=== PATIENT | male | born 1950 | race Caucasian/White ===

== ENCOUNTER 2022-04-11 08:24 | Outpatient (CLI) | payer MEDICARE, SELFPAY ==
[2022-04-11 14:22] LABS: Cholesterol* 126 mg/dL (90-199); Creatine Kinase* 79 U/L (54-186)
[2022-04-11 14:23] LABS: HDL Cholesterol* 40 mg/dL (>=40); LDL Cholesterol Calculated 74 mg/dL (<100); Triglycerides* 61 mg/dL (40-149)
[2022-04-11 14:27] LABS: C Reactive Protein* < 0.5 mg/dL (0.5-1.0)
[2022-04-11 15:04] LABS: Erythrocyte SedimentationRate* 6 mm/hr (2-15)
== END 2022-04-11 08:25 | disposition home or self-care (01) ==
PROVIDERS: PCP Family Medicine; Visit Provider Family Medicine
DX: E13.9 Other specified diabetes mellitus without complications (principal); E78.5 Hyperlipidemia, unspecified; I10 Essential (primary) hypertension; M79.10 Myalgia, unspecified site; M54.9 Dorsalgia, unspecified
CPT/HCPCS: 80061; 82550; 85651; 86140

== ENCOUNTER 2022-10-06 09:05 | Outpatient (CLI) | payer MEDICARE, SELFPAY | END 2022-10-06 09:06 | disposition home or self-care (01) | PROVIDERS: PCP Family Medicine; Visit Provider Family Medicine | DX: I10 Essential (primary) hypertension (principal); E13.9 Other specified diabetes mellitus without complications; E78.5 Hyperlipidemia, unspecified; E66.9 Obesity, unspecified | CPT/HCPCS: 80048 ==

== ENCOUNTER 2022-12-01 08:47 | Outpatient (CLI) | payer MEDICARE, SELFPAY | END 2022-12-01 08:48 | disposition home or self-care (01) | LOC: LONREF 08:50 | PROVIDERS: PCP Family Medicine; Visit Provider Family Medicine | DX: I10 Essential (primary) hypertension (principal); E78.5 Hyperlipidemia, unspecified; E13.9 Other specified diabetes mellitus without complications | CPT/HCPCS: 80048 ==

== ENCOUNTER 2023-04-27 09:17 | Outpatient (CLI) | payer MEDICARE, SELFPAY | END 2023-04-27 09:18 | disposition home or self-care (01) | LOC: LKVREF 09:18 | PROVIDERS: PCP Family Medicine; Visit Provider Family Medicine | DX: E78.5 Hyperlipidemia, unspecified (principal) | CPT/HCPCS: 80061 ==

== ENCOUNTER 2023-09-04 10:18 | Outpatient (CLI) | payer MEDICARE, SELFPAY | END 2023-09-04 10:19 | disposition home or self-care (01) | LOC: LKVREF 10:19 | PROVIDERS: PCP Family Medicine; Visit Provider Family Medicine | DX: Z01.818 Encounter for other preprocedural examination (principal); T85.848A Pain due to other internal prosthetic devices, implants and grafts, initial encounter | CPT/HCPCS: 80048 ==

== ENCOUNTER 2023-12-28 10:24 | Outpatient (CLI) | payer MEDICARE, SELFPAY ==
--- OUTSIDE RECORDS SUMMARY | 2023-12-28 10:27 | XMS_ITS | Referral Summary ---
Author Organization [place] Address [facility] [place] [address] Care Team Providers Care Pharmaceutical Development Technician Name Role Phone Ortega Kessler MD Primary Care Provider [phone] Allergies No known active allergies Medications Medication Sig Dispensed Refills Start Date End Date Status naproxen sodium 220 MG capsule Take 440 mg by mouth every morning Active insulin glargine (LANTUS VIAL) 100 UNIT/ML vial Inject 15 Units Subcutaneous at bedtime Active Dulaglutide (TRULICITY) 3 MG/0.5ML SOPN Inject 3 mg Subcutaneous every 7 days Active metFORMIN (GLUCOPHAGE) 1000 MG tablet Take 1,000 mg by mouth 2 times daily (with meals) Active simvastatin (ZOCOR) 40 MG tablet Take 40 mg by mouth at bedtime Active pioglitazone (ACTOS) 15 MG tablet Take 15 mg by mouth daily Active lisinopril (ZESTRIL) 40 MG tablet Take 40 mg by mouth daily Active hydrochlorothiazid e (HYDRODIURIL) 12.5 MG tablet Take 12.5 mg by mouth daily Active aspirin 81 MG EC tablet Take 81 mg by mouth three times a week Active Acyz-Beeei-PGB-Tc wellia-Vit D (GLUCOS CHONDROIT, BOSWELLIA,) TABS Take 1 tablet by mouth daily Active Multiple Vitamins-Minerals (MULTIVITAMIN ADULTS 50+ PO) Take 1 tablet by mouth daily Active calcium citrate-vitamin D (CITRACAL) 200-6.25 MG-MCG TABS per tablet Take 1 tablet by mouth daily Active ibuprofen (ADVIL/MOTRIN) 400 MG tablet Take 400 mg by mouth at bedtime Active docusate sodium (COLACE) 100 MG capsule Take 100 mg by mouth 2 times daily Active acetaminophen (TYLENOL) 500 MG tabletIndications: S/P total knee arthroplasty, left Take 2 tablets (1,000 mg) by mouth every 6 hours as needed for other (mild pain) 60 tablet 06/02/2023 Active aspirin 81 MG EC tabletIndications: S/P total knee arthroplasty, left Take 1 tablet (81 mg) by mouth 2 times daily 60 tablet 06/02/2023 Active senna-docusate (SENOKOT-S/PERICOL PAUL) 8.6-50 MG tabletIndications: S/P total knee arthroplasty, left Take 1-2 tablets by mouth 2 times daily Take while on oral narcotics to prevent or treat constipation. 30 tablet 06/02/2023 Active celecoxib (CELEBREX) 200 MG capsuleIndications :S/P total knee arthroplasty, left Take 1 capsule (200 mg) by mouth daily for 14 days Do not take within 6 hours of ibuprofen (MOTRIN, ADVIL) or ketorolac (TORADOL) if prescribed. 14 capsule 06/02/2023 Active oxyCODONE (ROXICODONE) 5 MG tabletIndications: S/P total knee arthroplasty, left Take 1-2 tablets (5-10 mg) by mouth every 4 hours as needed for moderate to severe pain 30 tablet 06/02/2023 Active hydrOXYzine HCl (ATARAX) 10 MG tabletIndications: S/P total knee arthroplasty, left Take 1 tablet (10 mg) by mouth every 6 hours as needed for itching or anxiety (with pain, moderate pain) 30 tablet 06/02/2023 Active Active Problems Problem Noted Date Diagnosed Date S/P total knee arthroplasty, left 06/02/2023 Social History Tobacco Use Types Packs/Day Years Used Date Smoking Tobacco: Never Passive Smoke Exposure: Never Smokeless Tobacco: Never Tobacco Cessation:Counseling Given: Not Answered Alcohol Use Standard Drinks/Week Comments Yes 0 (1 standard drink = 0.6 oz pur e alcohol) rarely Adolescent Education Answer Date Record ed Getting School Help Needed Not on file 05/06 Sex and Gender Information Value Date Recorded Sex Assigned at Not on file Gender Identity Not on file Sexual Orientation Not on file Last Filed Vital Signs Vital Sign Reading Time Taken Comments Blood Pressure 133/49 06/03/2023 7:14 AM FARM PLANNER Pulse 77 06/03/2023 7:14 AM FARM PLANNER Temperature 36.4 ??C (97.5 ??F) 06/03/2023 7:14 AM CS T Respiratory Rate 16 06/03/2023 7:14 AM FARM PLANNER Oxygen Saturation 94% 06/03/2023 7:14 AM FARM PLANNER Inhaled Oxygen Concentration - - Weight 77.2 kg (170 lb 4.8 oz) 06/02/2023 10:12 AM FARM PLANNER Height 170.2 cm (5' 7.01) 06/02/2023 10:[address] Body Mass Index 26.67 06/02/2023 10:12 AM FARM PLANNER Plan of Treatment Not on file Goals Goal Patient Goal Type Associated Problems Recent Progress Patient-Stated? Author Total Joint Replacement Hip Pathway Care Plan Total Joint Replacement Hip Pathway No Heather Beach RN Medical Devices Implanted Type Area Employee Benefits Administrator Device Identifier Shelf Expiration Date Model / Serial / Lot Bone Cement Strk Simplex P Speedset 6192-1-001 - [id number] Implanted:Qty: 2 on 06/02/2023 by Adam Hilliard MD at [facility] Cement, Bone Left: Knee [employer] 09/11/2023 6192-1-001 / / [id number] Implant Fem Id Imprt 6 Collin Kn Crcte Rtn Strl Lf - [id number] Implanted:Qty: 1 on 06/02/2023 by Adam Hilliard MD at [facility] Total Joint Component /Insert Left: Knee CONFORMIS 04/12/2028 TCR-101-F0 6N / / [id number] Identity Imprint Cr Tibia Size 6 Narrow [id number] - [id number] Implanted:Qty: 1 on 06/02/2023 by Adam Hilliard MD at [facility] Total Joint Component /Insert Left: Knee CONFORMIS 05/13/2028 TCR-301-T0 6N / / [id number] System Tkr Id Imprt Kn Crcte Rtn Jig Strl Lf - [id number] Implanted:Qty: 1 on 06/02/2023 by Adam Hilliard MD at [facility] Total Joint Component /Insert Left: Knee CONFORMIS 05/13/2024 TCR-000-D0 [id number] / Cmpnt Ptlr Ovl 38x9mm Cmnt Itotal Ipoly Xe Kn Strl Lf - [id number] Implanted:Qty: 1 on 06/02/2023 by Adam Hilliard MD at [facility] Total Joint Component /Insert Left: Knee CONFORMIS 02/10/2025 [id number] / / [id number] Identity Imprint Cs Ibial Insert, Size 6n, 7mm, Left Implanted:Qty: 1 on 06/02/2023 by Adam Hilliard MD at [facility] Total Joint Component /Insert Left: Knee CONFORMIS 11/11/2027 [id number] / / [id number] Procedures Procedure Name Priority Date/Time Associated Diagnosis Comments GLUCOSE BY METER Routine 06/03/2023 1:57 AM FARM PLANNER LIPID PANEL (EXTERNAL RESULT) Routine 04/27/2023 9:43 AM FARM PLANNER from Last 3 Months or Most Recently Relevant to Health Maintenance Results * (ABNORMAL) Glucose by meter (06/03/2023 1:57 AM FARM PLANNER) GLUCOSE BY METER POCT 160(H) 70 - 99 mg/dL 06/03/2023 6:14 AM FARM PLANNER LABORATORY POC Blood, Capillary BLOOD SPECIMEN / Unknown 06/03/2023 1:57 AM FARM PLANNER 06/03/2023 6:14 AM FARM PLANNER Adam [facility] - [facility] POCT LABORATORY POC [facility] Acute Care Lab [address] [facility] Lab (1st floor, no room number) [place] [address], [facility] [phone] * (ABNORMAL) Lipid Panel (External Result) (04/27/2023 9:43 AM FARM PLANNER) Cholesterol (External) 131 90 - 199 mg/dL [facility] Triglycerides (External) 58 40 - 149 mg/dL [facility] HDL Cholesterol (External) 39(L) >=40 mg/dL [facility] LDL Cholesterol Calculated (External) 80 <100 mg/dL [facility] Blood 04/27/2023 9:43 AM [facility] Narrative [facility] - 04/27/2023 9:43 AM [facility] Lab Result Provider Outside LAB - HIM EXTERNAL R ESULT [facility] [address] [place] [id number] [phone] from Last 3 Months or Most Recently Relevant to Health Maintenance Additional Health Concerns Active Problems Noted Date Diagnosed Date Total Joint Replacement Hip Pathway 05/12/2023 Advance Directives For more information, please contact: [phone] Documents on File Type Date Recorded 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 Advance Directives and Living Will 06/12/2023 Health Care Directiv e 01-22-2016 * Full Code (Latest Code Status on File) Date Activated Date Inactivated Comments 06/02/2023 4:43 PM 06/03/2023 1:13 PM All basic an d advanced life-sustaining interventions are performed as appropriate Question Answer Comments Code status determined by: Discussion with patie nt/ legal decision maker Healthcare Agents on File Name Relationship Healthcare Agent Relationship Communication Kaycee Rito Spouse Health Care Agent Celso Veras Son First Alternate Health Care Agent Kerwin Veras Son Second Alternat e Health Care Agent Care Teams Pharmaceutical Development Technician Relationship Specialty Start Date End Date Ortega Kessler MD PCP - General Family Medicine 06/02/23
--- OUTSIDE RECORDS SUMMARY | 2023-12-28 10:27 | XMS_ITS | Clinical Summary ---
Author Organization [place] Address [facility] [place] [address] Care Team Providers Care Rn Travel Name Role Phone Ortega Kessler MD Primary Care Provider [phone] Allergies No known active allergies Medications Medication [...] by mouth three times a week Active Vbil-Rxvvi-YVI-Tc wellia-Vit D (GLUCOS CHONDROIT, BOSWELLIA,) TABS Take [...] Comments Blood Pressure 133/49 06/03/2023 7:14 AM PUBLIC WORKS MANAGER Pulse 77 06/03/2023 7:14 AM PUBLIC WORKS MANAGER Temperature 36.4 ??C (97.5 ??F) 06/03/2023 7:14 AM CS T Respiratory Rate 16 06/03/2023 7:14 AM PUBLIC WORKS MANAGER Oxygen Saturation 94% 06/03/2023 7:14 AM PUBLIC WORKS MANAGER Inhaled Oxygen Concentration - - Weight 77.2 kg (170 lb 4.8 oz) 06/02/2023 10:12 AM PUBLIC WORKS MANAGER Height 170.2 cm (5' 7.01) 06/02/2023 10:[address] Body Mass Index 26.67 06/02/2023 10:12 AM PUBLIC WORKS MANAGER Plan of Treatment Health Maintenance Due Date Last Done Comments ANNUAL REVIEW OF HM ORDERS 1950 CT COLONOGRAPHY 1950 FIT 1950 FLEX SIG 1950 sDNA (Cologuard) 1950 COLONOSCOPY 1960 COLORECTAL CANCER SCREENING 1960 HEPATITIS C SCREENING 1968 FALL RISK ASSESSMENT 2015 MEDICARE ANNUAL WELLNESS VISIT 2015 PHQ-2 (once per calendar year) 2023 COVID-19 Vaccine ( season) 2023 01/20/2023, 01/24/2022, 08/26/2021, Additional history exists INFLUENZA VACCINE (#1) 2023 , 01/21/2022, 01/04/2021, Additional history exists LIPID 04/27/2024 04/27/2023 RSV VACCINE (1 - 1-dose 75+ series) 2025 GLUCOSE 06/03/2026 06/03/2023, 0204/2023, 06/03/2023, Additional history exists ADVANCE CARE PLANNING 06/11/2028 06/12/2023, 024 DTAP/TDAP/TD IMMUNIZATION (3 - Td or Tdap) 10/03/2030 10/03/2020, 03/18/2011, 05/27/2002 ZOSTER IMMUNIZATION Completed 12/29/2017, 10/05/2017, 03/18/2011 Pneumococcal Vaccine: 65+ Years Completed 09/21/2018, 07/10/2015, 08/19/2000 HPV IMMUNIZATION Aged Out No longer e ligible based on patient's age to complete this topic MENINGITIS IMMUNIZATION Aged Out No l onger eligible based on patient's age to complete this topic RSV MONOCLONAL ANTIBODY Aged Out No l onger eligible based on patient's age to complete this topic Goals Goal Patient Goal Type Associated Problems Recent Progress Patient-Stated? Author Total Joint Replacement Hip Pathway Care Plan Total Joint Replacement Hip Pathway No Heather Beach RN Medical Devices Implanted Type Area Heavy Machinery Operator Device Identifier Shelf Expiration Date Model / Serial / Lot Bone Cement Strk Simplex P Speedset 6192-1-001 - [id number] Implanted:Qty: 2 on 06/02/2023 by Adam Hilliard MD at [facility] Cement, Bone Left: Knee [employer] 09/11/2023 6192-1-001 / / [id number] Implant Fem Id Imprt 6 Collin Kn Crcte Rtn Strl Lf - [id number] Implanted:Qty: 1 on 06/02/2023 by Adam Hilliard MD at [facility] Total Joint Component /Insert Left: Knee CONFORMIS 04/12/2028 TCR-101-F0 6N / / [id number] Identity Imprint Cr Tibia Size 6 Narrow [id number] - [id number] Implanted:Qty: 1 on 06/02/2023 by Adam Hilliard MD at [facility] Total Joint Component /Insert Left: Knee CONFORMIS 05/13/2028 TCR-301-T0 6N / / [id number] System Tkr Id Imprt Kn Crcte Rtn Jig Strl Lf - [id number] Implanted:Qty: 1 on 06/02/2023 by Adam Hilliard MD at [facility] Total Joint Component /Insert Left: Knee CONFORMIS 05/13/2024 TCR-000-D0 [id number] / Cmpnt Ptlr Ovl 38x9mm Cmnt Itotal Ipoly Xe Kn Strl Lf - [id number] Implanted:Qty: 1 on 06/02/2023 by Adam Hilliard MD at [facility] Total Joint Component /Insert Left: Knee CONFORMIS 02/10/2025 [id number] / / [id number] Identity Imprint Cs Ibial Insert, Size 6n, 7mm, Left Implanted:Qty: 1 on 06/02/2023 by Adam Hilliard MD at [facility] Total Joint Component /Insert Left: Knee CONFORMIS 11/11/2027 [id number] / / [id number] Procedures Procedure Name Priority Date/Time Associated Diagnosis Comments GLUCOSE BY METER Routine 06/03/2023 1:57 AM PUBLIC WORKS MANAGER LIPID PANEL (EXTERNAL RESULT) Routine 04/27/2023 9:43 AM PUBLIC WORKS MANAGER from Last 3 Months or Most Recently Relevant to Health Maintenance Results * (ABNORMAL) Glucose by meter (06/03/2023 1:57 AM PUBLIC WORKS MANAGER) GLUCOSE BY METER POCT 160(H) 70 - 99 mg/dL 06/03/2023 6:14 AM PUBLIC WORKS MANAGER LABORATORY POC Blood, Capillary BLOOD SPECIMEN / Unknown 06/03/2023 1:57 AM PUBLIC WORKS MANAGER 06/03/2023 6:14 AM PUBLIC WORKS MANAGER Adam Hilliard MD [facility] POCT LABORATORY [facility] Acute Care Lab [address] [facility] Lab (1st floor, no room number) [place] [address], [facility] [phone] * (ABNORMAL) Lipid Panel (External Result) (04/27/2023 9:43 AM PUBLIC WORKS MANAGER) Cholesterol (External) 131 90 - 199 mg/dL [facility] Triglycerides (External) 58 40 - 149 mg/dL [facility] HDL Cholesterol (External) 39(L) >=40 mg/dL [facility] LDL Cholesterol Calculated (External) 80 <100 mg/dL [facility] Blood 04/27/2023 9:43 AM PUBLIC WORKS MANAGER Narrative [facility] - 04/27/2023 9:43 AM [facility] Lab Result Provider Outside LAB - HIM EXTERNAL R ESULT [facility] [address] [place] [address], [facility] [phone] from Last 3 Months or Most Recently Relevant to Health Maintenance Additional Health Concerns Active Problems Noted Date Diagnosed Date Total Joint Replacement Hip Pathway 05/12/2023 Advance Directives For more information, please contact: [phone] Documents on File Type Date 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 Advance Directives and Living Will 06/12/2023 [facility] Care Direct e 01-22-2016 * Full Code (Latest Code Status on File) Date Activated Date Inactivated Comments 06/02/2023 4:43 PM 06/03/2023 1:13 PM All basic an d advanced life-sustaining interventions are performed as appropriate Question Answer Comments Code status determined by: Discussion with patie nt/ legal decision maker Healthcare Agents on File Name Relationship Healthcare Agent Relationship Communication Kaycee Veras Spouse Health Care Agent Celso Veras Son First Alternate Health Care Agent Kerwin Veras Son Second Alternat e Health Care Agent Care Teams Rn Travel Relationship Specialty Start Date End Date Ortega Kessler MD PCP - General Family Medicine 06/02/23
--- OUTSIDE RECORDS SUMMARY | 2023-12-28 10:27 | XMS_ITS | Clinical Summary ---
Author Organization [facility] Address [place], [place] [address] Care Team Providers Care Torch Operator Name Role Phone Chris Kessler MD Primary Care Provider [phone] Allergies No known active allergies Medications Medication Sig Dispensed Refills Start Date End Date Status metFORMIN (GLUCOPHAGE) 1,000 mg tablet Take 1 tablet by mouth 2 times daily with meals. 0 02/13/2011 Active atorvastatin (LIPITOR) 40 mg tablet Take 1 tablet by mouth once daily. 0 02/13/2011 Active simvastatin (ZOCOR) 40 mg tablet Take 1 tablet by mouth at bedtime. 0 02/13/2011 Active Geriatric Multivitamins-Min Tab Take by mouth. 0 02/13/2011 Active calcium carbonate-vitamin D3, 600 mg-400 unit, (CALCIUM 600 + D) tablet Take 1 tablet by mouth 2 times daily with meals. 0 02/13/2011 Active exenatide (BYETTA) 10 mcg/0.04 mL injection Inject 10 mcg subcutaneous 2 times daily before meals. 0 02/13/2011 Active insulin glargine (LANTUS) 100 unit/mL injection Inject subcutaneous before bedtime. 10 mL 0 02/13/2011 Active aspirin 81 mg tablet Take 1 tablet by mouth once daily with a meal. 0 02/13/2011 Active Active Problems Problem Noted Date Diagnosed Date Bilateral incipient cataracts 03/31/2014 Pigment dispersion syndrome of both eyes 014 Diabetes mellitus type II 02/13/2011 Overview (06/28/2013): a system change updated this record. This will not affect patient care or billing. This comment can be deleted. HTN (hypertension) 02/13/2011 Hyperlipidemia 02/13/2011 Social History Tobacco Use Types Packs/Day Years Used Date Smoking Tobacco: Never Alcohol Use Standard Drinks/Week Comments Not Asked 0 (1 standard drink = 0.6 oz pur e alcohol) Sex and Gender Information Value Date Recorded Sex Assigned at Not on file Gender Identity Not on file Sexual Orientation Not on file Obstetrics History Last Filed Vital Signs Vital Sign Reading Time Taken Comments Blood Pressure 135/68 03/30/2014 5:41 PM INFORMATION SYSTEMS SPECIALIST Pulse - - Temperature - - Respiratory Rate - - Oxygen Saturation - - Inhaled Oxygen Concentration - - Weight - - Height - - Body Mass Index - - Plan of Treatment Health Maintenance Due Date Last Done Comments Tdap 1961 Depression screening for age 12+ 1962 BMI (ht and wt on same day) for age 18+ 1968 Hepatitis C screening for age 18-79 1968 Tetanus booster 1970 Colonoscopy through age 75 1995 Lipids for age 45-75 1995 Zoster (shingles) series for age 50+ (1 of 2) 03/26/20 00 Pneumococcal series for age 65+ (1 of 1 - PCV) 015 COVID-19 vaccine series ( - 2022- season) 4 Influenza for age 65+ 12/13/2023 Care Teams Torch Operator Relationship Specialty Start Date End Date Chris Kessler MD PCP - General 10/04/09
== END 2023-12-28 10:25 | disposition home or self-care (01) ==
LOC: LKVREF 10:25
PROVIDERS: PCP Family Medicine; Visit Provider Family Medicine
DX: Z01.818 Encounter for other preprocedural examination (principal); I10 Essential (primary) hypertension; E13.9 Other specified diabetes mellitus without complications; E78.2 Mixed hyperlipidemia
CPT/HCPCS: 80048

== ENCOUNTER 2024-01-07 06:22 | Day surgery (SDC) | payer MEDICARE, SELFPAY ==
[2024-01-07] VITALS (14 sets, daily range): BP systolic 115–169; BP diastolic 50–74; PULSE 54–90; RESP 18–20; TEMP 36.3–37; O2SAT 91–98; BMI 28.5
--- OUTSIDE RECORDS SUMMARY | 2024-01-07 06:24 | XMS_ITS | Continuity of Care Document ---
Author Organization [facility] Address [address] [address] [place] [address] Phone Care Team Providers Care Janitorial Tech Name Role Phone Patti More CRNA Unavailable Unavailable Allergies, Adverse Reactions, Alerts Substance Reaction Status Criticality No Known Allergies Active No Inform ation Medications Medication Instructions Dosage Effective Dates (start - stop) Status Comments Trulicity 3 mg/0.5 mL subcutaneous pen injector inject (3MG) by subcutaneous route every week 3 MG - Active metformin 1,000 mg tablet take 1 tablet by oral route 2 times every day with morning and evening meals 1000 MG - Active Aleve 220 mg tablet take 1 tablet by ORAL route every day as needed 220 MG - Active Lantus 100 unit/mL Sub-Q inject by subcutaneous route as per insulin protocol 0.00 - Active CALCIUM 600-VIT D3 (unknown strength) take 1 Tablet by Oral route every day Not Available - Active simvastatin 40 mg tablet take 1 tablet (40MG) by oral route every day in the evening 40 MG - Active hydrochlorothiazide 12.5 mg tablet take 1 tablet (12.5MG) by oral route every day 12.5 MG - Active lisinopril 40 mg tablet take 1 tablet (40MG) by oral route every day 40 MG - Active Multiple Vitamins tablet take 1 tablet b y oral route every day with food - Active pioglitazone 15 mg tablet take 1 Tablet (15MG) by oral route every day 15 MG - Active Aspirin Low Dose 81 mg Tab, Delayed Release Take 1 tablet by mouth daily - Active Byetta 10 mcg/0.04 mL per dose Sub-Q Pen Injector inject by subcutanous route twice daily - No Longer Active Glucosamine Chondroitin Maximum Strength 500 mg-400 mg capsule take 3 Tablet by Oral route every day 3 Tablet No Longer Active phentermine 37.5 mg tablet take 1 tablet (37.5MG) by oral route every day before breakfast 37.5 MG - No Longer Active Glucophage 1,000 mg Tab Take one tablet by mouth two times per day - No Longer Active glipizide 10 mg Tab Take one tablet by mouth daily - No Longer Active Procedures Procedure Date Colorectal Ca Scrn Not Hi Risk Colonoscopy Flex; Dx (sep Pro) Colonoscopy Flex; Dx (sep Advance Directives Directive Yes / No Effective Date File Name No Information Encounters Encounter Description Practice Location Reason(s) For Visit Diagnoses Date Provider Providers Copied on Encounter [facility], [address] [address], [place], [id number], [place] tel:[phone] [facility] No Information 3 Argenis Armstrong. [address], [place], [place], [address] , [place]. tel:[phone] Referring Provider: Ruy Morrow, [address], [place], [address] . tel:[phone] [facility], [address] [address], [place], [id number], [place] tel:[phone] [facility] GI Symptoms or Concerns (chief complaint) Screening ColonoscopyEncoun ter for screening for malignant neoplasm of colon 3 Vincent Redmond. [address], [place], [place], [id number] , [place]. tel:[phone] Referring Provider: Referral Self, USE FOR SELF REFERRALS. [facility], [address] [address], [place], [place], [address], [place] tel:[phone] [facility] No Information 3 Rory Anderson. [address], [facility] [address], [place], [place], [id number] , [place]. tel: [phone] [facility], [address] [address], [place], [place], [id number], [place] tel:[phone] [facility] Anemia NosHemorrhoids NosFamily Hx GI Tract CancerAnemia NosFamily Hx GI Tract CancerHemorrhoids Nos 3 Shannon Alas. [address], [facility] [address], [place], [place], [address] , [place]. tel: [phone] Referring Provider: Ortega Samuel, [address] [place] [address], [address]. tel:[phone] [facility], [address] [address], [place], [place], [id number], [place] tel:[phone] [facility] 6 Finesse Lozano. [address] [place] [address], [facility] [address], [facility] [place], [address] , [place]. tel: [phone] Referring Provider: Ortega Samuel, [address] [place] [address], [address]. tel:[phone] Family History Family Member Type Diagnosis Age At Onset No Information Immunizations Vaccine Date Status Comments SARS-COV-2 (COVID-19) vaccin e, mRNA, spike protein, LNP, bivalent booster, preservative free, 50 mcg/0.5 mL or 25 mcg/0.25 mL dose administered Note: [facility] bi-direct ional interface ; Source: Other Registry influenza, seasonal vaccine, quadrivalent, adjuvanted, 0.5mL dose, preservative free administered Note: [facility] bi-di rectional interface ; Source: Other Registry SARS-COV-2 (COVID-19) vaccin e, mRNA, spike protein, LNP, preservative free, 100 mcg/0.5mL dose or 50 mcg/0.25mL dose administered Note: [facility] bi -directional interface ; Source: Other Registry SARS-COV-2 (COVID-19) vaccin e, mRNA, spike protein, LNP, preservative free, 100 mcg/0.5mL dose or 50 mcg/0.25mL dose administered Note: [facility] bi -directional interface ; Source: Other Registry influenza, high-dose seasona l, quadrivalent, 0.7mL dose, preservative free administered Note: [facility] bi-direct ional interface ; Source: Other Registry tetanus toxoid, reduced diphtheria toxoid, and acellular pertussis vaccine, adsorbed administered Note: [facility] b i-directional interface ; Source: Other Registry SARS-COV-2 (COVID-19) vaccin e, mRNA, spike protein, LNP, preservative free, 100 mcg/0.5mL dose or 50 mcg/0.25mL dose administered Note: [facility] bi -directional interface ; Source: Other Registry SARS-COV-2 (COVID-19) vaccin e, mRNA, spike protein, LNP, preservative free, 100 mcg/0.5mL dose or 50 mcg/0.25mL dose administered Note: [facility] bi -directional interface ; Source: Other Registry influenza, high-dose seasona l, quadrivalent, 0.7mL dose, preservative free administered Note: [facility] bi-direct ional interface ; Source: Other Registry Afluria Qd administered Note: [facility] bi-directional interface ; Source: Other Registry Pneumovax 23 administered Note: [facility] bi-d irectional interface ; Source: Other Registry influenza, high dose seasona l, preservative-free administered Note: [facility] bi-direct ional interface ; Source: Other Registry zoster vaccine recombinant administered N ote: [facility] bi-directional interface ; Source: Other Registry zoster vaccine recombinant administered N ote: [facility] bi-directional interface ; Source: Other Registry influenza, high dose seasona l, preservative-free administered Note: [facility] bi-direct ional interface ; Source: Other Registry influenza, high dose seasona l, preservative-free administered Note: [facility] bi-direct ional interface ; Source: Other Registry Prevnar 13 administered Note: [facility] bi-d irectional interface ; Source: Other Registry Afluria Qd administered Note: [facility] bi-directional interface ; Source: Other Registry Influenza, seasonal, injectable administe red Note: [facility] bi- directional interface ; Source: Other Registry tetanus toxoid, reduced diphtheria toxoid, and acellular pertussis vaccine, adsorbed administered Note: [facility] b i-directional interface ; Source: Other Registry zoster vaccine, live administered Note: [facility] bi-directional interface ; Source: Other Registry Influenza, seasonal, injectable administe red Note: [facility] bi- directional interface ; Source: Other Registry Influenza, seasonal, injecta ble, preservative free administered Note: [facility] bi-direct ional interface ; Source: Other Registry influenza virus vaccine, unspecified formulation administered Note: [facility] bi-di rectional interface ; Source: Other Registry Influenza, seasonal, injectable administe red Note: [facility] bi- directional interface ; Source: Other Registry Pneumovax 23 administered Note: [facility] bi-d irectional interface ; Source: Other Registry Payers Payer name Insurance type Covered democrat ID Authoriza tion(s) [employer] Medicare Advantage [id number] Social History Type Description Quantity Date Captured Comments Sex Male Smoking Status No Information Chief Complaint And Reason For Visit No Information Reason For Referral Reason For Referral No Information History Of Present Illness Encounter Date Complaint History Of Prese nt Illness GI Symptoms or Concerns Functional Status Date Functional Assessmen t No Information Instructions Date Instruction Additional Infor mation Colon Cancer Prevention Related to Screening Colonoscopy Assessments Type Assessment Date No Information Patient Care Teams Name Effective Dates (start - stop) Status Members No Information
--- OUTSIDE RECORDS SUMMARY | 2024-01-07 06:24 | XMS_ITS | Clinical Summary ---
Author Organization [facility] Address [place], [place] [address] Care Team Providers Care Piccoloist Name Role Phone Chris Kessler MD Primary Care Provider [phone] Allergies No known active allergies Medications Medication [...] Comments Blood Pressure 135/68 03/30/2014 5:41 PM [facility] Pulse - - Temperature - - Respiratory [...] Influenza for age 65+ 12/13/2023 Care Teams Piccoloist Relationship Specialty Start Date End Date Chris Kessler MD PCP - General 10/04/09
--- OUTSIDE RECORDS SUMMARY | 2024-01-07 06:24 | XMS_ITS | Referral Summary ---
Author Organization [facility] Address [facility] [place] [address] Care Team Providers Care Ski Maker Name Role Phone Otrega Kessler MD Primary Care Provider [phone] Allergies No known active allergies Medications Medication [...] by mouth three times a week Active Kwba-Pekke-QHE-Tc wellia-Vit D (GLUCOS CHONDROIT, BOSWELLIA,) TABS Take [...] Comments Blood Pressure 133/49 06/03/2023 7:14 AM CHRONOMETER TESTER Pulse 77 06/03/2023 7:14 AM CHRONOMETER TESTER Temperature 36.4 ??C (97.5 ??F) 06/03/2023 7:14 AM CS T Respiratory Rate 16 06/03/2023 7:14 AM CHRONOMETER TESTER Oxygen Saturation 94% 06/03/2023 7:14 AM CHRONOMETER TESTER Inhaled Oxygen Concentration - - Weight 77.2 kg (170 lb 4.8 oz) 06/02/2023 10:12 AM CHRONOMETER TESTER Height 170.2 cm (5' 7.01) 06/02/2023 10:[address] Body Mass Index 26.67 06/02/2023 10:12 AM CHRONOMETER TESTER Plan of Treatment Not on file Goals Goal Patient Goal Type Associated Problems Recent Progress Patient-Stated? Author Total Joint Replacement Hip Pathway Care Plan Total Joint Replacement Hip Pathway No Heather Beach RN Medical Devices Implanted Type Area Food Production Machine Operator Device Identifier Shelf Expiration Date Model / Serial / Lot Bone Cement Strk Simplex P Speedset 6192-1-001 - [id number] Implanted:Qty: 2 on 06/02/2023 by Adam Hilliard MD at [facility] Cement, Bone Left: Knee [employer] 09/11/2023 6192-1-001 / / [id number] Implant Fem Id Imprt 6 Collin Kn Crcte Rtn Strl Lf - [id number] Implanted:Qty: 1 on 06/02/2023 by Adam Hilliard MD at [facility] Total Joint Component /Insert Left: Knee CONFORMIS 04/12/2028 TCR-101-F0 6N / / [id number] Identity Imprint Cr Tibia Size 6 Narrow [id number] - [id number] Implanted:Qty: 1 on 06/02/2023 by Adam Hilliard MD at [facility] Total Joint Component /Insert Left: Knee CONFORMIS 05/13/2028 TCR-301-T0 6N / / [id number] System Tkr Id Imprt Kn Crcte Rtn Jig Strl Lf - [id number] Implanted:Qty: 1 on 06/02/2023 by Adam Hilliard MD at [facility] Total Joint Component /Insert Left: Knee CONFORMIS 05/13/2024 TCR-000-D0 [id number] / Cmpnt Ptlr Ovl 38x9mm Cmnt Itotal Ipoly Xe Kn Strl Lf - [id number] Implanted:Qty: 1 on 06/02/2023 by Adam Hilliard MD at [facility] Total Joint Component /Insert Left: Knee CONFORMIS 02/10/2025 [id number] / / [id number] Identity Imprint Cs Ibial Insert, Size 6n, 7mm, Left Implanted:Qty: 1 on 06/02/2023 by Adam Hilliard MD at [facility] Total Joint Component /Insert Left: Knee CONFORMIS 11/11/2027 [id number] / / [id number] Procedures Procedure Name Priority Date/Time Associated Diagnosis Comments GLUCOSE BY METER Routine 06/03/2023 1:57 AM CHRONOMETER TESTER LIPID PANEL (EXTERNAL RESULT) Routine 04/27/2023 9:43 AM CHRONOMETER TESTER from Last 3 Months or Most Recently Relevant to Health Maintenance Results * (ABNORMAL) Glucose by meter (06/03/2023 1:57 AM CHRONOMETER TESTER) GLUCOSE BY METER POCT 160(H) 70 - 99 mg/dL 06/03/2023 6:14 AM CHRONOMETER TESTER LABORATORY POC Blood, Capillary BLOOD SPECIMEN / Unknown 06/03/2023 1:57 AM CHRONOMETER TESTER 06/03/2023 6:14 AM CHRONOMETER TESTER Adam [facility] POCT LABORATORY POC [facility] Lab [address] [facility] (1st floor, no room number) [place] [address], [facility] [phone] * (ABNORMAL) Lipid Panel (External Result) (04/27/2023 9:43 AM CHRONOMETER TESTER) Cholesterol (External) 131 90 - 199 mg/dL [facility] Triglycerides (External) 58 40 - 149 mg/dL [facility] HDL Cholesterol (External) 39(L) >=40 mg/dL [facility] LDL Cholesterol Calculated (External) 80 <100 mg/dL [facility] Blood 04/27/2023 9:43 AM [facility] Narrative [facility] - 04/27/2023 9:43 AM [facility] Lab Result Provider Outside LAB - HIM EXTERNAL R ESULT [facility] [address] [place] [id number] [phone] from Last 3 Months or Most Recently Relevant to Health Maintenance Additional Health Concerns Active Problems Noted Date Diagnosed Date Total Joint Replacement Hip Pathway 05/12/2023 Advance Directives For more information, please contact: [phone] Documents on File Type Date Recorded 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
--- OUTSIDE RECORDS SUMMARY | 2024-01-07 06:24 | XMS_ITS | Clinical Summary ---
Author Organization [facility] Address [facility] [place] [address] Care Team Providers Care Facility Maintenance Helper Name Role Phone Ortega Kessler MD Primary Care Provider [phone] Allergies No known active allergies Medications Medication [...] by mouth three times a week Active Mydo-Rjqpt-DRS-Tc wellia-Vit D (GLUCOS CHONDROIT, BOSWELLIA,) TABS Take [...] Comments Blood Pressure 133/49 06/03/2023 7:14 AM STATION USHER Pulse 77 06/03/2023 7:14 AM STATION USHER Temperature 36.4 ??C (97.5 ??F) 06/03/2023 7:14 AM CS T Respiratory Rate 16 06/03/2023 7:14 AM STATION USHER Oxygen Saturation 94% 06/03/2023 7:14 AM STATION USHER Inhaled Oxygen Concentration - - Weight 77.2 kg (170 lb 4.8 oz) 06/02/2023 10:12 AM STATION USHER Height 170.2 cm (5' 7.01) 06/02/2023 10:[address] Body Mass Index 26.67 06/02/2023 10:12 AM STATION USHER Plan of Treatment Health Maintenance Due Date [...] Beach RN Medical Devices Implanted Type Area Oil Well Services Dispatcher Device Identifier Shelf Expiration Date Model / Serial / Lot Bone Cement Strk Simplex P Speedset 6192-1-001 - [id number] Implanted:Qty: 2 on 06/02/2023 by Adam Hilliard MD at [facility] Cement, Bone Left: Knee [employer] 09/11/2023 6192-1-001 / / [id number] Implant Fem Id Imprt 6 Collin Kn Crcte Rtn Strl Lf - [id number] Implanted:Qty: 1 on 06/02/2023 by Adam Hilliard MD at [facility] Total Joint Component /Insert Left: Knee CONFORMIS 04/12/2028 TCR-101-F0 6N / / [id number] Identity Imprint Cr Tibia Size 6 Narrow [id number] - [id number] Implanted:Qty: 1 on 06/02/2023 by Adam Hilliard MD at [facility] Total Joint Component /Insert Left: Knee CONFORMIS 05/13/2028 TCR-301-T0 6N / / [id number] System Tkr Id Imprt Kn Crcte Rtn Jig Strl Lf - [id number] Implanted:Qty: 1 on 06/02/2023 by Adam Hilliard MD at [facility] Total Joint Component /Insert Left: Knee CONFORMIS 05/13/2024 TCR-000-D0 [id number] / Cmpnt Ptlr Ovl 38x9mm Cmnt Itotal Ipoly Xe Kn Strl Lf - [id number] Implanted:Qty: 1 on 06/02/2023 by Adam Hilliard MD at [facility] Total Joint Component /Insert Left: Knee CONFORMIS 02/10/2025 [id number] / / [id number] Identity Imprint Cs Ibial Insert, Size 6n, 7mm, Left Implanted:Qty: 1 on 06/02/2023 by Adam Hilliard MD at [facility] Total Joint Component /Insert Left: Knee CONFORMIS 11/11/2027 [id number] / / [id number] Procedures Procedure Name Priority Date/Time Associated Diagnosis Comments GLUCOSE BY METER Routine 06/03/2023 1:57 AM STATION USHER LIPID PANEL (EXTERNAL RESULT) Routine 04/27/2023 9:43 AM STATION USHER from Last 3 Months or Most Recently Relevant to Health Maintenance Results * (ABNORMAL) Glucose by meter (06/03/2023 1:57 AM STATION USHER) GLUCOSE BY METER POCT 160(H) 70 - 99 mg/dL 06/03/2023 6:14 AM STATION USHER LABORATORY POC Blood, Capillary BLOOD SPECIMEN / Unknown 06/03/2023 1:57 AM STATION USHER 06/03/2023 6:14 AM STATION USHER Adam Hilliard MD [facility] POCT LABORATORY [facility] Acute Care Lab [address] [facility] Lab (1st floor, no room number) [place] [address], [facility] [phone] * (ABNORMAL) Lipid Panel (External Result) (04/27/2023 9:43 AM STATION USHER) Cholesterol (External) 131 90 - 199 mg/dL [facility] Triglycerides (External) 58 40 - 149 mg/dL [facility] HDL Cholesterol (External) 39(L) >=40 mg/dL [facility] LDL Cholesterol Calculated (External) 80 <100 mg/dL [facility] Blood 04/27/2023 9:43 AM STATION USHER Narrative [facility] - 04/27/2023 9:43 AM [facility] Lab Result Provider Outside LAB - HIM EXTERNAL R ESULT [facility] [address] [place] [address], [facility] [phone] from Last 3 Months or Most Recently Relevant to Health Maintenance Additional Health Concerns Active Problems Noted Date Diagnosed Date 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
[2024-01-07] MEDS: SODIUM CHLORIDE 0.9 % (FLUSH) 10 ML SYRINGE IVF (07:20)
[2024-01-07] MEDS: LACTATED RINGERS 1000 ML 1,000 ML 100 ML IV ×2 (07:20→10:20)
[2024-01-07] MEDS: CEFAZOLIN 2 GM INJ IVP (07:44)
[2024-01-07] MEDS: BUPIVACAINE 0.25% 30 ML INJECTION (08:10)
--- NOTE | 2024-01-07 09:47 | PM.GSPRC ---
Operative Note Date of procedure: 01/07/24 Pre-op diagnosis: Right inguinal hernia Post-op diagnosis: Same, indirect Type of Procedure: Laparoscopic right inguinal hernia repair Indications: Patient is a 73-year-old male who presented to clinic with a symptomatic right inguinal hernia. Different treatment options were reviewed with the patient deciding to pursue operative intervention. Risks and benefits of operative intervention were discussed at length with the patient. Risks included but was not limited to: Bleeding, infection, risk of damage to surrounding structures, possible need for additional procedures, possible need to convert to an open operation and postoperative complications such as pneumonia, pulmonary emboli or MD. All questions and concerns were addressed with the patient agreeing to proceed. Procedure Description: After discussing the risks and benefits of the procedure, the patient signed informed consent.? The operative site was marked and the patient was brought to the operating room and placed on the operating table in supine position.? Care was taken to pad the patient's pressure points.?? The patient was then intubated by anesthesia.?? The operative site was then prepped and draped in the usual sterile fashion.? A time-out was then performed. A curvilinear incision was made below the umbilicus. Dissection was carried down to subcutaneous tissue until the anterior rectus fascia was encountered. This was incised off the midline. The rectus muscles were then retracted exposing the posterior fascia. A space maker port with a dissecting balloon was then introduced. The preperitoneal space was inflated under direct vision. The balloon was then removed and the preperitoneal space insufflated. A 10 mm 30 degree scope was then advanced and the area was surveyed for bleeding. Dissection began on the right side. Justin's ligament and the pubic bone was exposed medially. Following this dissection was carried out laterally. A large indirect defect was noted. The sac was dissected free from the cord structures using a combination of sharp and blunt dissection. Once the sac was completely reduced, the cord structures were dissected circumfrentially and a piece of Parietex mesh for the appropriate side was placed into the abdomen. This was positioned around the cord structures. A Tacker was used to attach the mesh medially at Justin's ligament. Once this was completed the sac was placed on top of the mesh and the preperitoneal space desufflated under direct vision. The ports were removed. The fascia from the infraumbilical port was closed with 0 Vicryl. The skin incisions were closed with absorbable subcuticular suture. Sterile dressings were then applied. The scrotum was examined to ensure that both testicles were down. Instrument sponge and needle counts were correct at the end of the case. Findings: Large indirect hernia, right side Anesthesia: GETA Surgeon: Nya Ty MD Estimated blood loss (mL): 5 Condition: stable Disposition: PACU
[2024-01-07] MEDS: ONDANSETRON 2 MG/ML inj 4 MG IVP (10:05)
--- NOTE | 2024-01-07 10:05 | P.ANES_ITS ---
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
[2024-01-07] MEDS: fentaNYL 100 MCG/2 ML inj 50 MCG IVP ×2 (10:20→10:30)
[2024-01-07] MEDS: HYDROCODONE-ACETAMIN 5-325 MG 1 TAB PO (10:51)
== END 2024-01-07 12:08 | disposition home or self-care (01) ==
PROVIDERS: PCP Family Medicine; Visit Provider Surgery
PROC: (CPT 49650; principal; 2024-01-07 07:30)
DX: K40.90 Unilateral inguinal hernia, without obstruction or gangrene, not specified as recurrent (principal); E13.9 Other specified diabetes mellitus without complications
CPT/HCPCS: 49650; 00830; 82962; 99100; A9270; C1781; J0665; J0690; J1100; J2371; J2405; J2704; J2710; J3010; J7120

== ENCOUNTER 2024-04-01 10:41 | Outpatient (CLI) | payer MEDICARE, SELFPAY | END 2024-04-01 10:42 | disposition home or self-care (01) | LOC: LKVREF 10:42 | PROVIDERS: PCP Family Medicine; Visit Provider Family Medicine | DX: E78.2 Mixed hyperlipidemia (principal) | CPT/HCPCS: 80061 ==

== ENCOUNTER 2024-06-03 09:06 | Outpatient (CLI) | payer MEDICARE, SELFPAY | END 2024-06-03 09:07 | disposition home or self-care (01) | LOC: LKVREF 09:08 | PROVIDERS: PCP Family Medicine; Visit Provider Family Medicine | DX: I10 Essential (primary) hypertension (principal); Z01.818 Encounter for other preprocedural examination | CPT/HCPCS: 80048 ==

== ENCOUNTER 2024-09-15 15:18 | Outpatient (CLI) | payer MEDICARE, SELFPAY ==
[2024-09-15 15:57] LABS: Creatinine* 0.9 mg/dL (0.5-1.5); Estimated Glomerular Filt Rate 90 ml/min
--- NOTE | 2024-09-15 16:00 | CRLHL7_ITS ---
For Patients: As a result of the Century Cures Act, medical imaging exams and procedure reports are released immediately into your electronic medical record. You may view this report before your referring provider. If you have questions, please contact your health care provider. Indication: Unilateral inguinal hernia, without obstruction Technique: Routine noncontrast CT abdomen and pelvis. Please note that all CT scans at this facility use dose modulation, iterative reconstruction, and/or weight-based dosing when appropriate to reduce radiation dose to as low as reasonably achievable. Comparison: None Findings: Scarring is present within the lung bases, left greater than right. No pleural effusion. No hiatal hernia. Noncontrast enhanced liver normal. Normal gallbladder. Spleen within normal limits. Normal adrenal glands. Pancreas unremarkable. No hydronephrosis. Peripherally calcified cyst arises from the upper pole of the right kidney measuring 5.8 cm. Atherosclerotic changes. No aneurysm. Mildly distended loops of small bowel in the midline are present containing air and fluid measuring up to 4.1 cm. Mild prominence of the associated bowel wall noted. Bilateral inguinal hernias are present. On the right, the hernia measures at least 7.2 cm and contains loops of bowel. On the left, the hernia measures approximately 6.8 cm and contains loops of bowel. No mechanical bowel obstruction. The bladder is normal. The prostate is prominent with lobular mass effect upon the inferior bladder. Severe multilevel degenerative disc disease with leftward curvature. No vertebral body compression fracture. There is a circumscribed peripherally calcified structure in the midline of the abdomen which measures 2.7 cm. Central fat density is present. Impression: Large bilateral inguinal hernias containing loops of bowel, [id number]-left. No mechanical bowel obstruction. Mildly distended loops of small bowel in the midline with associated mild wall thickening could suggest ileitis. Bosniak 2 cyst arising from the upper pole of the right kidney measuring 5.8 cm. The cyst is water attenuation with peripheral calcifications posteriorly. Benign-appearing circumscribed structure within the anterior midline abdomen measuring 2.7 cm. Please note that all CT scans at this facility use dose modulation, iterative reconstruction, and/or weight-based dosing when appropriate to reduce radiation dose to as low as reasonably achievable. Dictated by Nash Stone MD @ 09/19/2024 10:45:17 AM (Electronically Signed)
== END 2024-09-15 15:19 | disposition home or self-care (01) ==
LOC: CT 15:19
PROVIDERS: PCP Family Medicine; Visit Provider Surgery
DX: K40.90 Unilateral inguinal hernia, without obstruction or gangrene, not specified as recurrent (principal); N28.1 Cyst of kidney, acquired
CPT/HCPCS: 36415; 74176; 82565

== ENCOUNTER 2024-09-22 09:01 | Day surgery (SDC) | payer MEDICARE, SELFPAY ==
[2024-09-22] VITALS (14 sets, daily range): BP systolic 124–171; BP diastolic 64–75; PULSE 71–848; RESP 10–18; TEMP 36.2–37.2; O2SAT 95–98; BMI 23.8
[2024-09-22] MEDS: SODIUM CHLORIDE 0.9 % (FLUSH) 10 ML SYRINGE IVF (09:57)
[2024-09-22] MEDS: LACTATED RINGERS 1000 ML 1,000 ML 100 ML IV ×2 (09:57→17:01)
--- NOTE | 2024-09-22 10:22 | W.PM.H&PU ---
History & Physical Update History & Physical Update H&P Reviewed and patient assessed: No changes noted
--- NOTE | 2024-09-22 10:51 | P.ANES_ITS ---
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
--- NOTE | 2024-09-22 10:51 | W.ANESCHARGE ---
Anesthesia Charges Start Date/Time Anesthesia Start Date: 09/22/24 Anesthesia Start Time: 10:41 Stop Date/Time Anesthesia Stop Date: 09/22/24 Anesthesia Stop Time: 14:46 Summary Extremes of Age - Over 70 or under 1: MDA Coding CPT Codes CPT Codes: ANESTH REPAIR OF HERNIA - 94811 ([id number]) P2 - PATIENT W/MILD SYST DISEASE, QK - VISUAL DEVELOPER 2-4 CNCRNT ANES PROC, QX - SOLAR MAINTENANCE TECHNICIAN SVC W/ MD MED DIRECTION Additional Codes: Summary - Extremes of Age - Over 70 or under 1: MDA ([id number])
[2024-09-22] MEDS: CEFAZOLIN 1 GM inj IVP (10:57)
[2024-09-22] MEDS: BUPIVACAINE 0.25% 30 ML INJECTION (11:03)
--- NOTE | 2024-09-22 11:06 | SUR.OPER ---
PATIENT QUESTIONS ANSWERED SATISFACTORILY PREOPERATIVELY. PATIENT BROUGHT TO OR #1 PER CART. Patient positioned supine on OR #1 bed. The perioperative team supported arms bilaterally on arm boards. Final approval of positioning by surgeon.
--- NOTE | 2024-09-22 14:06 | SUR.OPER ---
SURGEON DECLINES OFFER TO SEND EXCISED TISSUE TO PATHOLOGY.
--- NOTE | 2024-09-22 14:44 | P.ANES_ITS ---
Anesthesia Charges Start Date/Time Anesthesia Start Date: 09/22/24 Anesthesia Start Time: 10:41 Stop Date/Time Anesthesia Stop Date: 09/22/24 Anesthesia Stop Time: 14:46 Summary Extremes of Age - Over 70 or under 1: LIBRARY TECHNICAL ASSISTANT Coding CPT Codes CPT Codes: ANESTH REPAIR OF HERNIA - 62297 ([id number]) P2 - PATIENT W/MILD SYST DISEASE, QK - HOGSHEAD BUILDER 2-4 CNCRNT ANES PROC, QX - LIBRARY TECHNICAL ASSISTANT SVC W/ MD MED DIRECTION Additional Codes: Summary - Extremes of Age - Over 70 or under 1: LIBRARY TECHNICAL ASSISTANT ([id number])
--- NOTE | 2024-09-22 14:44 | W.ANESCHARGE ---
Anesthesia Charges Start Date/Time Anesthesia Start Date: 09/22/24 Anesthesia Start Time: 10:41 Stop Date/Time Anesthesia Stop Date: 09/22/24 Anesthesia Stop Time: 14:46 Summary Extremes of Age - Over 70 or under 1: LAB DIRECTOR Coding CPT Codes CPT Codes: ANESTH REPAIR OF HERNIA - 38903 ([id number]) P2 - PATIENT W/MILD SYST DISEASE, QK - SALES TECHNICIAN HOME THEATER 2-4 CNCRNT ANES PROC, QX - LAB DIRECTOR SVC W/ MD MED DIRECTION Additional Codes: Summary - Extremes of Age - Over 70 or under 1: LAB DIRECTOR ([id number])
[2024-09-22] MEDS: HYDROCODONE-ACETAMIN 5-325 MG 1 TAB PO (15:40)
--- NOTE | 2024-09-22 16:03 | SUR.PHASEII ---
Patient states need to void. Offered bedside urinal or ambulation to bathroom. Patient preferred bathroom. Patient ambulatory to bathroom with walker, gait belt, and stand by assist of 2. Patient states he voided and feels he completely drained his bladder. Returned to room. Patient resting on bed. Tolerating food and fluids. Call light within reach. VSS
--- NOTE | 2024-09-22 16:05 | P.GSOP_ITS ---
Operative Note Date of procedure: 09/22/24 Pre-op diagnosis: 1. Right inguinal hernia with incarcerated colon 2. Left inguinal hernia with reducible small bowel Post-op diagnosis: Same Type of Procedure: Patient is a 74-year-old male who presented to clinic with evidence of a recurrent right-sided inguinal hernia and new left inguinal hernia. Both hernias were large on examination with incarcerated colon and small bowel. On the right side the colon was not able to be reduced. On the left side the hernia was easily reduced. Different treatment options were reviewed with the patient with recommendations to proceed to the operating room for repair. Risks and benefits of operative intervention were discussed at length with the patient. Risks included but was not limited to: Bleeding, infection, risk of damage to surrounding structures, possible need for additional procedures and postoperative complications such as pneumonia, pulmonary emboli or MO. All questions and concerns were addressed with the patient agreeing to proceed. Procedure Description: After discussing the risks and benefits of the procedure, the patient signed informed consent.? The operative site was marked and the patient was brought to the operating room and placed on the operating table in supine position.? Care was taken to pad the patient's pressure points.?? The patient was then intubated by anesthesia.?? The operative site was then prepped and draped in the usual sterile fashion.? A time-out was then performed. Dissection was started on the right side. Local anesthetic was injected into the skin and subcutaneous tissue overlying the inguinal canal. An oblique incision would was made over the external ring. Dissection was carried down into the subcutaneous tissue using cautery until the external oblique fascia was encountered. This was cleared off. The external ring was identified and after injection of more local anesthetic, the external oblique was incised using a knife. This was extended using the Metzenbaum scissors with care to dissect the underlying hernia sac and cord structures away before cutting. The hernia sac was large and tense. No evidence of infection or necrosis. The hernia sac was circumferentially dissected away from the underlying cord structures. The sac was entered with evidence of incarcerated cecum and appendix. There was some fluid within the hernia sac, consistent with serous peritoneal fluid. The hernia was consistent with an indirect and appeared to originate from the internal ring. On inspecting the internal ring the previously placed laparoscopic mesh was present with the hernia going through the overlapped pieces of mesh. The mesh was partially transected with scissors to allow for reduction of the cecum and appendix. The hernia sac was then dissected off of the cord structures. The hernia sac was then ligated and the proximal end reduced into the abdomen. A piece of Bard soft polypropylene mesh was obtained and cut to size. This was secured to the pubic tubercle using interrupted 0 Nurolon suture. Several 0 Nurolon sutures were then placed along the inguinal l igament and superiorly along the transversalis fascia securing the tails behind the cord and recreating the internal ring. Wound was irrigated and examined for hemostasis. The external oblique fascia was then reapproximated with absorbable suture. Sandra's fascia was closed with interrupted 3-0 Vicryl and a wet Ray- Yamilet placed in the wound. Attention was then directed to the left side. Local anesthetic was injected into the skin and subcutaneous tissue overlying the inguinal canal. An oblique incision would was made over the external ring. Dissection was carried down into the subcutaneous tissue using cautery until the external oblique fascia was encountered. This was cleared off. The external ring was identified and after injection of more local anesthetic, the external oblique was incised using a knife. This was extended using the Metzenbaum scissors with care to dissect the underlying cord structures away before cutting. The cord was cleared from the inside of the inguinal canal and looped with a [place] drain. A large indirect inguinal hernia was identified. The hernia sac was day of dissected off of the cord structures. This was opened to ensure no intra- abdominal contents were present. A loop of small bowel was present in the hernia sac. Scar tissue from the small bowel to the peritoneum was carefully taken down with Metzenbaum scissors. This allowed the small bowel to freely move into the abdomen away from the hernia repair. The hernia sac was then ligated and the proximal end reduced into the abdomen. A piece of Bard soft polypropylene mesh was obtained and cut to size. This was secured to the pubic tubercle using several interrupted 0 Nurolon suture. 0 Nurolon suture was then placed along the inguinal ligament and superiorly along the transversalis fascia securing the tails behind the cord and recreating the internal ring. The wound was irrigated and examined for hemostasis. The external oblique fascia was then reapproximated with absorbable suture. Sandra's fascia was closed with interrupted 3-0 Vicryl. Both incisions were then closed in layers with interrupted 3-0 Vicryl to reapproximate the dermis and a running subcuticular stitch of 4-0 Monocryl. Sterile dressings were applied. Instrument sponge and needle counts were correct at the end of the case. The patient was woken and taken to the PACU in stable condition. ? The patient was then woken and transported to the recovery area in stable condition. ? The patient tolerated the procedure well. Findings: On the right side a large indirect hernia with incarcerated cecum and appendix. Reduction of the colon and repair of the hernia with mesh. On the left side a large indirect hernia with incarcerated but reducible small bowel. Reduction of the small bowel and repair of the hernia with mesh. Anesthesia: GETA Surgeon: Nya Ty MD Estimated blood loss (mL): 75 Condition: stable Disposition: PACU
== END 2024-09-22 17:00 | disposition home or self-care (01) ==
PROVIDERS: PCP Family Medicine; Visit Provider Surgery
PROC: (CPT 49650; principal; 2024-09-22 11:00)
DX: K40.00 Bilateral inguinal hernia, with obstruction, without gangrene, not specified as recurrent (principal); E13.9 Other specified diabetes mellitus without complications; Z79.85 Long-term (current) use of injectable non-insulin antidiabetic drugs; Z79.84 Long term (current) use of oral hypoglycemic drugs; Z79.4 Long term (current) use of insulin; Z79.82 Long term (current) use of aspirin; I10 Essential (primary) hypertension; E78.2 Mixed hyperlipidemia
CPT/HCPCS: 49650; 00830; 00840; 82962; 99100; A9270; C1781; J0330; J0665; J0690; J1100; J1171; J2371; J2704; J3010; J3490; J7120

== ENCOUNTER 2024-10-28 10:42 | Outpatient (CLI) | payer MEDICARE, SELFPAY ==
--- NOTE | 2024-10-28 11:00 | CRLHL7_ITS ---
For Patients: As a result of the Century Cures Act, medical imaging exams and procedure reports are released immediately into your electronic medical record. You may view this report before your referring provider. If you have questions, please contact your health care provider. Indication: possible hernia recurrence vs abdominal wall laxity Technique: Noncontrast CT abdomen and pelvis Please note that all CT scans at this facility use dose modulation, iterative reconstruction, and/or weight-based dosing when appropriate to reduce radiation dose to as low as reasonably achievable. Comparison: 09/15/2024 Findings: Postop changes of right inguinal hernia repair noted. There is a ovoid low-density structure within the right inguinal space which measures 4.8 x 6.1 cm. No bowel involvement. Lung bases are clear. Unremarkable liver and gallbladder. Normal spleen. Pancreas normal. Adrenal glands are within normal limits. Simple cyst arises from the upper pole of the right kidney, as before. Normal adrenal glands. Atherosclerotic disease. Bladder normal. No bowel obstruction. Multilevel degenerative changes. Impression: Postop changes of right inguinal hernia repair. There is an oblong circumscribed structure within the right inguinal canal which measures 4.8 x 6.1 cm. This appears to represent the right testicle and ultrasound is recommended for further evaluation. Please note that all CT scans at this facility use dose modulation, iterative reconstruction, and/or weight-based dosing when appropriate to reduce radiation dose to as low as reasonably achievable. Dictated by Nash Stone MD @ 10/28/2024 12:35:25 PM (Electronically Signed)
== END 2024-10-28 10:43 | disposition home or self-care (01) ==
LOC: CT 10:43
PROVIDERS: PCP Family Medicine; Visit Provider Family Medicine
DX: Z98.890 Other specified postprocedural states (principal); Z87.19 Personal history of other diseases of the digestive system
CPT/HCPCS: 74176

== ENCOUNTER 2024-11-03 10:32 | Outpatient (CLI) | payer MEDICARE, SELFPAY ==
--- NOTE | 2024-11-03 10:45 | CRLHL7_ITS ---
For Patients: As a result of the Century Cures Act, medical imaging exams and procedure reports are released immediately into your electronic medical record. You may view this report before your referring provider. If you have questions, please contact your health care provider. INDICATION: Hematoma right inguinal region. Right inguinal hernia repair. TECHNIQUE: Bilateral scrotal ultrasound. Ultrasound of the right inguinal region. Grayscale color Doppler. FINDINGS: Testicles: No mass lesions. Testicular blood flow: Intact color Doppler flow. Spectral arterial waveform images of the testicles were performed to confirm arterial blood flow. Arterial waveform tracings. Right inguinal region: Hypoechoic and echo lucent focus 3.7 x 4.4 cm in the area of palpable lump. IMPRESSION: 1. Unremarkable sonographic evaluation of the testicles. 2. Right inguinal lesion with the sonographic appearance compatible with a hematoma. Correlate with clinical follow-up to confirm resolution. Dictated by Kerwin Vo MD @ 11/08/2024 9:38:25 AM (Electronically Signed)
== END 2024-11-03 10:33 | disposition home or self-care (01) ==
LOC: US 10:33
PROVIDERS: PCP Family Medicine; Visit Provider Family Medicine
DX: R10.31 Right lower quadrant pain (principal)
CPT/HCPCS: 76870; 93976

== ENCOUNTER 2025-01-27 09:27 | Outpatient (CLI) | payer MEDICARE, SELFPAY | END 2025-01-27 09:28 | disposition home or self-care (01) | PROVIDERS: PCP Family Medicine; Visit Provider Family Medicine | DX: E78.2 Mixed hyperlipidemia (principal); I10 Essential (primary) hypertension; Z13.29 Encounter for screening for other suspected endocrine disorder | CPT/HCPCS: 80048; 80061; 82607; 84443 ==